=== PATIENT | male | born 1940 | race Caucasian/White ===

== ENCOUNTER 2019-04-08 15:23 | Observation (INO) ==
[2019-04-08] MEDS ORDERED: ONDANSETRON 4 MG/2 ML VIAL IV STA (16:11)
[2019-04-08 16:53] LABS: Basophils % 0.5 % (0.0-0.8); Eosinophils # 0.1 10*3/uL (0.0-0.87); Eosinophils % 1.5 % (0.00-10.9); Hemoglobin 16.3 GM/DL (14.0-18.0); Immature Granulocytes % 0.5 %; Immature Granulocytes Absolute 0.04 #; Lymphocytes # 1.9 10*3/uL (1.4-4.0); Lymphocytes % 22.8 % (21.2-54.2); Mean Corpuscular Volume 90.7 FL (87-102); Mean Platelet Volume 9.7 FL (9.6-12.0); Monocytes % 7.6 % (1.7-12.7); Neutrophils % 67.1 % (38.7-73.9); Platelet Count 201 T/CUMM (130-400); Red Blood Count 5.29 MC/CUMM (3.8-5.5); Red Cell Distribution Width 12.4 % (9.3-17.3); White Blood Count 8.4 T/CUMM (4-12)
[2019-04-08 16:55] LABS: Apearance,Urine CLEAR (Clear); Bilirubin,Urine Negative (Negative); Blood, Urine Negative (Negative); Glucose,Urine (UA) Negative (Negative); Ketones,Urine Negative (Negative); Nitrite,Urine Negative (Negative); Protein,Urine Negative; RBC,Urine 1 /HPF (0-4); Urine Color Straw (Yellow); Urine Specific Gravity 1.004 (1.001-1.035); Urine Urobilinogen < 2.0 EU/DL (0.2-1.0); WBC,Urine 1 /HPF (0-6)
[2019-04-08 17:04] LABS: INR 0.9; PT Patient Result 10.2 SECS (9.6-12.2)
[2019-04-08 17:06] LABS: Barbiturates Screen,Urine Negative (Negative); Benzodiazepines Screen,Urine Negative (Negative); Cannabinoid Screen,Urine Negative (Negative); Opiate Screen,Urine Negative (Negative); Phencyclidine Screen,Urine Negative (Negative)
[2019-04-08 17:21] LABS: Alanine Aminotransferase 18 U/L (16-61); Albumin 3.8 G/DL (3.4-5.0); Alkaline Phosphatase 76 U/L (45-117); Aspartate Amino Transferase 18 U/L (0-37); Blood Urea Nitrogen 14 MG/DL (7-18); Calcium 8.9 MG/DL (8.5-10.1); Estimated Glom Filtration Rate 51 ML/MIN; Glucose 128 MG/DL (74-106); Osmolality,Calculated 277.7 MOS/KG (273-304); Total Protein 6.7 G/DL (6.4-8.3)
[2019-04-08] MEDS ORDERED: CLOPIDOGREL 75 MG TABLET PO STA (17:46)
[2019-04-08 19:39] LABS: Risk Ratio 5.18; VLDL CHOLESTEROL 94.4 MG/DL
[2019-04-08] MEDS ORDERED: BUDESONIDE/FORMOTEROL 80-4.5 INHALER 6.9 GM INH SCH (21:00)
[2019-04-08] MEDS ORDERED: FLUTICASONE 50 MCG NASAL SPRAY 16 GM BOTTLE BOTH NARES SCH (21:00)
[2019-04-08] MEDS ORDERED: CETIRIZINE 10 MG TABLET PO SCH (21:00)
[2019-04-08] MEDS ORDERED: ATORVASTATIN 40 MG TABLET PO SCH (21:00)
[2019-04-08] MEDS ORDERED: PANTOPRAZOLE 40 MG TABLET PO SCH (21:00)
[2019-04-08] MEDS ORDERED: MONTELUKAST 10 MG TABLET PO SCH (21:00)
[2019-04-09 05:43] LABS: Basophils % 0.2 % (0.0-0.8); Eosinophils # 0.1 10*3/uL (0.0-0.87); Eosinophils % 0.8 % (0.00-10.9); Hematocrit 42.6 VOL% (42.0-52.0); Hemoglobin 14.3 GM/DL (14.0-18.0); Immature Granulocytes % 0.4 %; Immature Granulocytes Absolute 0.04 #; Lymphocytes # 2.5 10*3/uL (1.4-4.0); Lymphocytes % 26.6 % (21.2-54.2); Mean Corpuscular HGB Conc 33.6 GM/DL (32-36); Mean Platelet Volume 10.2 FL (9.6-12.0); Monocytes % 7.2 % (1.7-12.7); Neutrophils % 64.8 % (38.7-73.9); Platelet Count 206 T/CUMM (130-400); Red Blood Count 4.63 MC/CUMM (3.8-5.5); Red Cell Distribution Width 12.7 % (9.3-17.3); White Blood Count 9.2 T/CUMM (4-12)
[2019-04-09] MEDS ORDERED: CLOPIDOGREL 75 MG TABLET PO SCH (09:00)
[2019-04-09] MEDS ORDERED: amLODIPine 5 MG TABLET PO SCH (09:00)
[2019-04-09] MEDS ORDERED: ASPIRIN EC 81 MG TABLET PO SCH (09:00)
[2019-04-09 11:49] VITALS: BP 137/75
== END 2019-04-09 16:05 | disposition home or self-care (01) ==
LOC: N.ED 15:23 → N.EDINP 15:23 → N.4E 19:09
PROVIDERS: ADMIT Internal Medicine; ATTEND Internal Medicine